=== PATIENT | male | born 1995 | race Caucasian/White ===

== ENCOUNTER → 2020-07-17 | Outpatient (CLI) | payer SELFPAY | LOC: M LABSMTC 11:12 | PROVIDERS: ATTEND Pediatrics | DX: Z20.822 Contact with and (suspected) exposure to COVID-19 (principal) ==

== ENCOUNTER 2021-05-22 18:25 | Emergency (ER) | payer OTHER ==
[~2021-05-22] VITALS: Ht 172.7 cm; Wt 83.6 kg
[2021-05-22 18:26] VITALS: BP 141/94
[2021-05-22] MEDS ORDERED: AUGM875T28 PO (22:10)
[2021-05-22] MEDS ORDERED: AUGMENTIN 875 MG TAB PO ONE (22:10)
== END 2021-05-22 22:20 | disposition home or self-care (01) ==
LOC: M ED 18:25
DX: H66.93 Otitis media, unspecified, bilateral (principal); J30.2 Other seasonal allergic rhinitis

== ENCOUNTER → 2021-08-23 | Outpatient (CLI) | payer OTHER ==
[~2021-08-23] MED LIST: AUGM875T28 PO
== END ==
LOC: M SOG 13:24
PROVIDERS: ATTEND Orthopaedic Surgery Hand Surgery
DX: S52.502D Unspecified fracture of the lower end of left radius, subsequent encounter for closed fracture with routine healing (principal)

== ENCOUNTER → 2021-10-25 | Outpatient (CLI) | payer OTHER ==
[~2021-10-25] MED LIST changes: +ISOVUE-300 61% 50ML VIAL As Ordered ONE; +LIDOCAINE 1% MDV 20ML VIAL As Ordered ONE; +PROHANCE 279.3MG/ML 5ML VIAL As Ordered ONE
== END ==
LOC: M RADPRO 06:15
PROVIDERS: ATTEND Orthopaedic Surgery Hand Surgery
DX: R93.7 Abnormal findings on diagnostic imaging of other parts of musculoskeletal system (principal)
CPT/HCPCS: 25246; 73223; 77002; A9576; Q9967

== ENCOUNTER 2022-01-05 10:40 | Day surgery (SDC) | payer OTHER ==
[~2022-01-05] VITALS: Ht 167.6 cm; Wt 83.0 kg
[~2022-01-05 10:40] MED LIST changes: -ISOVUE-300 61% 50ML VIAL As Ordered ONE; -LIDOCAINE 1% MDV 20ML VIAL As Ordered ONE; -PROHANCE 279.3MG/ML 5ML VIAL As Ordered ONE
[2022-01-05] MEDS ORDERED: LR 1,000 ML IV SCH ×2 (10:55→14:45)
[2022-01-05] MEDS ORDERED: KETOROLAC 60MG 2ML VIAL As Ordered ONE ×2 (13:34→14:22)
[2022-01-05] MEDS ORDERED: dexameTHASONE 4 MG/ML 1ML VIAL (J1100 PER 1MG) As Ordered ONE (13:34)
[2022-01-05] MEDS ORDERED: LIDOCAINE 2% 100MG/5ML SDV (FOR ANES.) As Ordered ONE (13:34)
[2022-01-05] MEDS ORDERED: propofoL 200 MG/20 ML VIAL As Ordered ONE (13:34)
[2022-01-05] MEDS ORDERED: ONDANSETRON 4MG 2ML VIAL As Ordered ONE (13:34)
[2022-01-05] MEDS ORDERED: fentaNYL 100 MCG/2 ML INJECTION As Ordered ONE (13:35)
[2022-01-05] MEDS ORDERED: BUPIVACAINE HCL 0.25% 30ML VIAL As Ordered ONE (13:36)
[2022-01-05] MEDS ORDERED: BACITRACIN OINTMENT 30GM TUBE As Ordered ONE (13:36)
[2022-01-05] MEDS ORDERED: MIDAZOLAM INJ 2MG/2ML VIAL (J2250 PER 1MG) As Ordered ONE (13:36)
[2022-01-05] MEDS ORDERED: ceFAZolin 2 GM/D5W 50 ML IV BAG (J0690 PER 500MG) As Ordered ONE (14:11)
[2022-01-05] MEDS ORDERED: fentaNYL 100 MCG/2 ML INJECTION IV PRN (14:45)
[2022-01-05] MEDS ORDERED: MEPERIDINE INJ 25 MG/ML VIAL (J2175) IV PRN (14:45)
[2022-01-05] MEDS ORDERED: oxyCODONE 5MG TAB PO PRN (14:45)
[2022-01-05] MEDS ORDERED: METOCLOPRAMIDE INJ 10MG/2ML VIAL (J2765 PER 1) IV PRN (14:45)
[2022-01-05] MEDS ORDERED: ONDANSETRON 4MG 2ML VIAL IV PRN (14:45)
[2022-01-05 15:26] VITALS: BP 137/89
== END 2022-01-05 15:50 | disposition home or self-care (01) ==
LOC: M SDC 10:40
PROVIDERS: ATTEND Orthopaedic Surgery Hand Surgery
DX: T84.84XA Pain due to internal orthopedic prosthetic devices, implants and grafts, initial encounter (principal); M25.532 Pain in left wrist; J30.2 Other seasonal allergic rhinitis; F17.290 Nicotine dependence, other tobacco product, uncomplicated
CPT/HCPCS: 20680; 76000; 88300; J0690; J1100; J1885; J2250; J2405; J3010

== ENCOUNTER → 2022-01-19 | Outpatient (CLI) | payer OTHER | LOC: M SOG 07:56 | PROVIDERS: ATTEND Physician Assistant | DX: M25.532 Pain in left wrist (principal); Z87.81 Personal history of (healed) traumatic fracture ==

== ENCOUNTER → 2022-03-28 | Outpatient (CLI) | payer OTHER | LOC: M SOG 10:37 | PROVIDERS: ATTEND Orthopaedic Surgery Hand Surgery | DX: Z48.89 Encounter for other specified surgical aftercare (principal); S52.502D Unspecified fracture of the lower end of left radius, subsequent encounter for closed fracture with routine healing ==